=== PATIENT | female | born 1975 | race Caucasian/White ===

== ENCOUNTER 2023-03-19 22:05 | Emergency (ER) | payer BC ==
[2023-03-19] MEDS ORDERED: Albuterol 200 PUFF INH ONE (22:52)
[2023-03-19] MEDS ORDERED: predniSONE 20 MG TAB ONE (22:52)
== END 2023-03-19 23:39 | disposition home or self-care (01) ==
LOC: ERS 22:05
DX: J20.9 Acute bronchitis, unspecified (principal)
CPT/HCPCS: 71045; 93005; J7512